=== PATIENT | female | born 1995 | race African-American/Black ===

== ENCOUNTER 2022-05-24 15:26 | Emergency (ER) | payer OTHER ==
[~2022-05-24] VITALS: Ht 157.5 cm; Wt 57.2 kg
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
--- NOTE | 2022-05-24 19:19 | NUR ---
Patient discharged to home in stable condition. Written and verbal after care instructions given. Patient verbalizes understanding of instruction.
[2022-05-24 19:22] VITALS: BP 114/72
== END 2022-05-24 19:22 | disposition home or self-care (01) ==
LOC: ER 15:29
DX: S09.90XA Unspecified injury of head, initial encounter (principal); V89.2XXA Person injured in unspecified motor-vehicle accident, traffic, initial encounter; Y93.89 Activity, other specified; Y92.89 Other specified places as the place of occurrence of the external cause; Y99.8 Other external cause status
CPT/HCPCS: 70450-TC